=== PATIENT | female | born 1990 | race Caucasian/White ===

== ENCOUNTER 2017-02-26 23:08 | Emergency (ER) | payer OTHER, BC ==
[~2017-02-26 23:08] MED LIST: BIRTH CONTROL; ZOFRAN ODT4 MG/UDTAB PO
[2017-02-27] MEDS ORDERED: WELLBUTRIN SR150 M2 PO (00:20)
== END 2017-02-27 00:05 ==
LOC: EDMED 23:08
DX: S46.812A Strain of other muscles, fascia and tendons at shoulder and upper arm level, left arm, initial encounter (principal); V49.50XA Passenger injured in collision with unspecified motor vehicles in traffic accident, initial encounter; Y92.410 Unspecified street and highway as the place of occurrence of the external cause